=== PATIENT | female | born 1950 | race Caucasian/White ===

== ENCOUNTER 2017-11-24 21:29 | Emergency (ER) | payer OTHER ==
[2017-11-24] MEDS ORDERED: Bacitracin pkt 1 gm Pkt TP ONE (22:24)
[2017-11-24] MEDS ORDERED: HYDROmorphone 2 mg/mL 1mL Vial IVP STA (22:38)
[2017-11-24] MEDS ORDERED: Aspirin 325 mg EC PO ONE (22:42)
[2017-11-24] MEDS ORDERED: Triple Antibiotic 0.94 gm Pkt TP STA (22:43)
[2017-11-24] MEDS ORDERED: Levofloxacin 500mg/100mL 500 MG/100 ML BAG IV ONE (22:45)
[2017-11-24] MEDS ORDERED: HYDROmorphone 2 mg/mL 1mL Vial ONE (22:55)
[2017-11-24 23:12] LABS: WHITE BLOOD COUNT 4.1 Th/cmm (4.8-10.8)
[2017-11-24 23:16] LABS: HEMATOCRIT 49.6 % (41.0-60); HEMOGLOBIN 16.5 gm/dL (12-16); MEAN CELL VOLUME 82.4 fl (81-100); MEAN CORPUSCULAR HEMOGLOBIN 27.3 pg (27.0-31.0); MEAN CORPUSCULAR HGB CONC 33.2 pg (28.0-36.0); MEAN PLATELET VOLUME 9.1 fl; PLATELET COUNT 118 Th/cmm (150-400); RED BLOOD COUNT 6.02 Mil/cmm (3.80-5.20); RED CELL DISTRIBUTION WIDTH 16.4 % (11.5-20.0)
[2017-11-24 23:17] LABS: MANUAL DIFF REQUIRED? YES
[2017-11-24 23:27] LABS: ALB/GLOB RATIO 0.9 (1.0-1.8); ALBUMIN 3.3 gm/dL (3.7-5.3); ALKALINE PHOSPHATASE 61 U/L (34-104); ANION GAP 10.3 (7.0-16.0); BILIRUBIN,TOTAL 0.5 mg/dL (0.3-1.0); BUN - UREA NITROGEN 20 mg/dL (7-25); CALCIUM SERUM 9.4 mg/dL (8.6-10.3); CARBON DIOXIDE 27.5 mEq/L (21.0-31.0); CHLORIDE 101 mEq/L (98-107); CHOLESTEROL 131 mg/dL (<200); CREATININE - SERUM 0.8 mg/dL (0.6-1.2); GFR AFRICAN-AMERICAN > 60.0 ml/min (>90); GFR NON AFRICAN-AMERICAN > 60.0 ml/min; GLUCOSE 286 mg/dL (70-105); HDL -HIGH DENSITY LIPOPROTEIN 47 mg/dL (23-92); MAGNESIUM 1.6 mg/dL (1.9-2.7); POTASSIUM SERUM 3.8 mEq/L (3.5-5.1); SGOT 20 U/L (13-39); SGPT/ALT 10 U/L (7-52); SODIUM SERUM 135 mEq/L (136-145); TRIGLYCERIDES 157 mg/dL (<150)
[2017-11-24 23:34] LABS: BAND NEUTROPHILE 1 % (0-10); EOSINOPHIL 1 % (0-5); LYMPHOCYTE 25 % (20-50); MONOCYTE 8 % (2-10); NEUTROPHILS 65 % (40-80); PLATELET ESTIMATE SLIGHT DECREASED (NORMAL); TOTAL CELLS COUNTED 100
[2017-11-24] MEDS ORDERED: Mag Sulfate 2gm/50mL Premix 2 GM/50 ML BAG IV ONE (23:49)
[2017-11-24] MEDS ORDERED: Potassium Chloride 20 mEq ER Tab PO ONE (23:50)
[2017-11-24] MEDS ORDERED: INSULIN HUMAN REGULAR 100 UNITS/ML UNIT SUBQ ONE (23:51)
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
[2017-11-25] MEDS ORDERED: Mag Sulfate 2gm/50mL Premix 2 GM/50 ML BAG IV ONE (01:49)
[2017-11-25] MEDS ORDERED: INSULIN HUMAN REGULAR 100 UNITS/ML UNIT ONE (02:08)
--- NOTE | 2017-11-25 03:15 | Transfer Summary ---
DATE OF TRANSFER: ADDENDUM The patient is 67-year-old female. Roughly about 5 minutes ago, she said that her right ankle is hurting and the pain is in the low lumbar area. I examined her and the upper part of the thoracic and thoracic area, etc., were all normal. The lower lumbar area had some mild localized pain on deep palpation. Sacrum and coccyx area had no significant pain except for mild discomfort on deep pressure. The right ankle was slightly swollen. There was no definite evidence of fracture on that day, but one cannot say. I have been ____ by everybody that worked here, Megan and Luiza and I believe Kannan to order all kinds of x-ray as a general rule to order it. Just for a note should be understood and was mentioned to me quite a number of times. The patient's lab workup came back; white count is 4.1, hemoglobin is 16.5, hematocrit is 49.6, and platelet count is 118,000, MPV is 91%, neutrophils are 65, bands 1, lymphocytes 25, and monocytes 1. Platelet esterase is slightly decreased. Sodium was 135 and potassium 3.8. The patient was given 40 mEq of potassium by mouth, chloride is 101, CO2 is 27.5, and glucose is 286. The patient was given 10 units of regular insulin. Creatinine is 0.8 and BUN is 20. The patient's calcium level is 9.4, albumin is 3.3. Total protein is 7, albumin globulin ratio is 0.9, AST is 0.5, ALT is 10, alkaline phosphatase is 61. Cholesterol is 131, triglyceride is 157, HDL is 47, and LDL is 68. Magnesium is 1.6. Two grams of magnesium has been given followed by it seems the patient would need more magnesium. BNP is within normal limits, so no evidence of CHF is noted. Magnesium is low should be noted once again, the MD admitting the patient should keep an eye on that more magnesium might be needed. Troponin is 0.3 within normal limits. So in conclusion, the patient has a history of fall. The patient has pain in the low back area, doubt any fracture and even if there is any fracture, there is nothing more one could do, usually when the patient has 7 stents, the patient is not a candidate for any kind of surgical intervention. The patient also has emphysematous chest wall, COPD, seen puffed type of face. Hypomagnesemia, hypokalemia, and diabetes mellitus. The patient after giving Dilaudid, I believe the patient had some nausea, vomiting, maybe as a result of Dilaudid, maybe not, I do not know; but the patient was in excruciating pain a 10/10 and hence 2 units of Dilaudid was given to her with this excruciating pain and the patient's weight of 250, she needed some high dose of painkiller one time. JOB# [id number]
--- NOTE | 2017-11-25 08:33 | Diagnostic Imaging Report ---
Exam: Right ankle joint x-ray HISTORY: Pain fracture Findings: Multiple views of the right ankle joint reviewed. The study demonstrates extensive soft tissue swelling over the right lateral malleolus suggestive of inflammatory changes. There is no evidence for acute fracture dislocation. The ankle mortise is intact. Incidentally noted the spurring of the os calcaneus. Vascular calcifications are noted. IMPRESSION: Large amount of soft tissue swelling right lateral malleolus. Clinical correlation recommended.
[2017-11-25 17:51] LABS: A1C % 10.1 % (4.0-6.0)
== END 2017-11-25 03:29 | disposition short-term general hospital (02) ==
LOC: ER 21:29
DX: M54.2 Cervicalgia (principal); M54.5 Low back pain; M25.561 Pain in right knee; M79.675 Pain in left toe(s); E11.9 Type 2 diabetes mellitus without complications; I25.10 Atherosclerotic heart disease of native coronary artery without angina pectoris; E66.9 Obesity, unspecified; Z68.39 Body mass index [BMI] 39.0-39.9, adult
CPT/HCPCS: 99285; 96365; 96372; 96375; 96376; 84484; 83880; 36415; 36416; 82948; 84443; 85007; 85027; 85025; 83036; 83735; 80053; 80061; 73610; Z7610; J2405 ×2; J3475; 87086-90; J1170; J1815